=== PATIENT | female | born 1985 | race American Indian/Alaskan Native ===

== ENCOUNTER 2017-06-15 01:04 | Day surgery (SDC) | payer BC ==
[2017-06-15] MEDS ORDERED: NACL 0.9% 1000 ML 1,000 ML IV ONE (01:11)
[2017-06-15] MEDS ORDERED: MORPHINE IV ONE (01:13)
[2017-06-15] MEDS ORDERED: ZOFRAN IV ONE (01:14)
--- NOTE | 2017-06-15 01:27 | Emergency Department Report ---
HPI - General Chief Complaint: Vaginal Bleeding Time Seen by Provider: 06/15/17 01:11 - HPI HPI: 32-year-old -[place] female , with LMP March 30, about 15 weeks EGA , presented to the ED with vaginal bleeding, passed fetus, but placenta still remaining. She states symptoms occurred about an hour ago while at home. She suddenly felt the urge to push, like she was in labor, and started to see vaginal bleeding, and the fetus came out. the fetus has . vaginal bleeding, is light, but her pelvic cramping is 10/10. ED Past Medical Hx - Medications Home Medications: Home Medications Medication Instructions Recorded Confirmed Last Taken Type Vit No.130/Iron/FA 1 each PO DAILY 06/15/17 06/15/17 Unknown History [ Tablet] ED Review of Systems ROS: Stated complaint: POSS MISCARRIAGE Other details as noted in HPI Comment: All other systems reviewed and negative Gastrointestinal: as per HPI Genitourinary: as per HPI Physical Exam - Physical Exam Physical Exam: - General Limitations: No Limitations General appearance: alert, in no apparent distress - Head Head exam: Present: atraumatic, normocephalic - Eye Eye exam: Present: normal appearance - ENT ENT exam: Present: mucous membranes moist - Neck Neck exam: Present: normal inspection - Respiratory Respiratory exam: Present: normal lung sounds bilaterally. Absent: respiratory distress - Cardiovascular Cardiovascular Exam: Present: normal rhythm, tachycardia. Absent: systolic murmur, diastolic murmur, rubs, gallop - GI/Abdominal GI/Abdominal exam: Present: soft, normal bowel sounds - vaginal bleeding with remainder of products of conception - Extremities Exam Extremities exam: Present: normal inspection - Back Exam Back exam: Present: normal inspection - Neurological Exam Neurological exam: Present: alert, oriented X3, - Skin Skin exam: Present: warm, dry, intact, normal color. Absent: rash ED Medical Decision Making - Lab Data Result diagrams: 06/15/17 01:16 06/15/17 01:16 Critical care attestation.: If time is entered above; I have spent that time in minutes in the direct care of this critically ill patient, excluding procedure time. ED Disposition Clinical Impression: Spontaneous Disposition: OP ADMIT IP TO THIS HOSP Is pt being admited?: Yes Does the pt Need Aspirin: No Condition: Stable
[2017-06-15 01:44] LABS: Basophils % (Auto) 0.1 % (0.0-1.8); Eosinophils % (Auto) 1.3 % (0.0-4.3); Hematocrit 33.2 % (30.3-42.9); Hemoglobin 11.6 gm/dl (10.1-14.3); Mean Corpuscular HGB Conc 35 % (30-34); Mean Corpuscular Hemoglobin 29 pg (28-32); Mean Corpuscular Volume 83 fl (79-97); Platelet Count 233 K/mm3 (140-440); Red Cell Distribution Width 13.7 % (13.2-15.2); White Blood Count 9.8 K/mm3 (4.5-11.0)
[2017-06-15] MEDS ORDERED: LACTATED RINGERS 1,000 ML ONE (01:44)
[2017-06-15] MEDS ORDERED: ROCEPHIN/NS 2 GM/100 ML 2 GM/100 ML BAG IV ONE (01:45)
--- NOTE | 2017-06-15 01:54 | Short Stay Summary ---
Short Stay Documentation Date of service: 06/15/17 Narrative H&P: Pt is a 32-year-old -[place] female , with LMP March 30, about 15 weeks EGA, presented to the ED with vaginal bleeding, passed fetus, but placenta still remaining. She states symptoms occurred about an hour ago while at home. She suddenly felt the urge to push, like she was in labor, and started to see vaginal bleeding, and the fetus came out. The fetus has , and vaginal bleeding is light, but her pelvic cramping is 10/10. - History Principal diagnosis: Retained products of conception H&P: obtained from office Past Medical History: No medical history Past Surgical History: No surgical history Social history: no significant social history, - Allergies and Medications Current Medications: Allergies No Known Allergies Allergy (Verified 06/15/17 01:49) Home Medications Medication Instructions Recorded Confirmed Last Taken Type Vit No.130/Iron/FA 1 each PO DAILY 06/15/17 06/15/17 Unknown History [ Tablet] Active Medications Sodium Chloride (Nacl 0.9% 1000 Ml) 1,000 mls @ 999 mls/hr IV BOLUS ONE Stop: 06/15/17 02:11 Ceftriaxone Sodium (Rocephin/Ns 2 Gm/100 Ml) 2 gm in 100 mls @ 200 mls/hr IV ONCE.ED ONE Stop: 06/15/17 02:14 Cefazolin Sodium (Ancef/Sterile Water 2 Gm/20 Ml) 2 gm in 20 mls @ 80 mls/hr IV PREOP NR PRN Reason: Protocol Lactated Ringer's (Lactated Ringers) 1,000 mls @ 125 mls/hr IV DIRECT SANIYA - Physical exam General appearance: mild distress Integumentary: no rash HEENT: Atraumatic Lungs: Clear to auscultation Breasts: deferred Heart: Regular rate Gastrointestinal: normal Female Genitourinary: deferred Rectal Exam: deferred Extremities: No edema Neurological: Normal speech - Brief post op/procedure progress note Date of procedure: 06/15/17 Pre-op diagnosis: Incomplete Post-op diagnosis: same Procedure: D&C Anesthesia: MAC Findings: A 12-14 weeks size uterus with scant amounts of POC Surgeon: NORMA MATA Estimated blood loss: 50-100ml Pathology: list (POC) Specimen disposition: to lab Condition: stable - Hospital course Hospital course: Unremarkable. - Disposition Condition at discharge: Good Disposition: DC-01 TO HOME OR SELFCARE - Discharge Diagnoses (1) Incomplete Status: Resolved (2) Retained products of conception, following delivery with hemorrhage Status: Resolved Short Stay Discharge Plan Activity: no restrictions Diet: regular Follow up with: PRIMARY MD KECIA [Primary Care Provider] - 3-5 Days NORMA MATA MD [Staff Physician] - 7 Days Prescriptions: Doxycycline [Vibramycin CAP] 100 mg PO Q12HR #14 capsule Ibuprofen [Motrin] 600 mg PO Q8H PRN #30 tablet PRN Reason: Pain Methylergonovine [Methergine] 0.2 mg PO Q8HR #6 tablet
[2017-06-15] MEDS ORDERED: ANCEF/STERILE WATER 2 GM/20 ML 2 GM/20 ML SYRINGE IV NR (02:00)
[2017-06-15] MEDS ORDERED: LACTATED RINGERS 1,000 ML IV SCH (02:00)
[2017-06-15 02:04] LABS: Alanine Aminotransferase 7 units/L (7-56); Albumin 3.1 g/dL (3.9-5); Alkaline Phosphatase 66 units/L (35-129); Anion Gap 17 mmol/L; BUN/Creatinine Ratio 6.66; Blood Urea Nitrogen 4 mg/dL (7-17); Calcium 8.4 mg/dL (8.4-10.2); Carbon Dioxide 20 mmol/L (22-30); Chloride 105.9 mmol/L (98-107); Glucose 104 mg/dL (65-100); Potassium 3.7 mmol/L (3.6-5.0); Sodium 139 mmol/L (137-145); Total Protein 6.1 g/dL (6.3-8.2)
[2017-06-15] MEDS ORDERED: SUBLIMAZE ONE (02:27)
[2017-06-15] MEDS ORDERED: DIPRIVAN 10 MG/ML IV ONE (02:27)
[2017-06-15] MEDS ORDERED: XYLOCAINE MPF 2% ONE (02:27)
[2017-06-15] MEDS ORDERED: DILAUDID IV PRN (03:03)
[2017-06-15] MEDS ORDERED: DEMEROL IV PRN (03:03)
--- NOTE | 2017-06-15 03:03 | Anesthesia Consultation ---
Anesthesia Consult and Med Hx Date of service: 06/15/17 - Airway Anesthetic Teeth Evaluation: Good ROM Head & Neck: Adequate Mental/Hyoid Distance: Adequate Mallampati Class: Class II Intubation Access Assessment: Probably Good - Pulmonary Exam CTA: Yes - Cardiac Exam Cardiac Exam: RRR - Pre-Operative Health Status ASA Pre-Surgery Classification: ASA1 Proposed Anesthetic Plan: General - Pulmonary Hx Smoking: No Hx Asthma: No - Cardiovascular System Hx Hypertension: No - Endocrine Hx Non-Insulin Dependent Diabetes: No
--- NOTE | 2017-06-15 03:03 | Anesthesia Day of Surgery ---
Anesthesia Day of Surgery - Day of Surgery Patient Examined: Yes Patient H&P Reviewed: Yes Patient is NPO: Yes
[2017-06-15] MEDS ORDERED: NACL 0.9% 1000 ML 1,000 ML ONE (03:05)
[2017-06-15 03:30] LABS: INR 0.95 (0.87-1.13)
[2017-06-15 03:31] LABS: Partial Thromboplastin Time 28.4 Sec. (24.2-36.6)
[2017-06-15] MEDS ORDERED: ZOFRAN ONE (03:36)
[2017-06-15] MEDS ORDERED: DECADRON ONE (03:38)
--- NOTE | 2017-06-15 03:47 | Operative Report ---
Operative Report Operative Report: PREOPERATIVE DIAGNOSIS: 1. Incomplete 2. Retained products of conception POSTOPERATIVE DIAGNOSIS: Same OPERATIVE PROCEDURE: Dilatation and curettage. SURGEON: Parish Ashby MD ANESTHESIA: Gen. mac ANESTHESIOLOGIST: Dr. Cervantes ESTIMATED BLOOD LOSS: 50 mL's FINDINGS: A 12-14 week size uterus with scant amounts of products of conception COMPLICATIONS: None COUNTS: Correct x3. PROCEDURE: After the patient was correctly identified, and after general anesthesia was administered, the patient was prepped and draped in the usual sterile fashion and placed in dorsal lithotomy position. First, the bladder was emptied using a straight catheter. Next, a speculum was placed in the vaginal vault and the anterior lip of the cervix was grasped using a single- tooth tenaculum. The uterus was sounded to 14 cm. The cervical os was sequentially dilated, and a 12 mm vaccurette was used to suction blood and products of conception from the uterine cavity. After all the products of conception were removed, the procedure was considered complete. All instruments were removed from the vagina. The patient tolerated the procedure well and was transferred to the recovery room in stable condition.
--- NOTE | 2017-06-15 03:52 | Post Anesthesia Evaluation ---
- Post Anesthesia Evaluation Patient Participated: Yes Airway Patent: Yes Stable Respiratory Function: Yes Nausea/Vomiting: No Temp > 96.8F: Yes Pain Manageable: Yes Adequeate Hydration: Yes Anesthesia Complications: No Block Receding Appropriately: Not Applicable Patient on Ventilator: No
[2017-06-15 04:38] VITALS: BP 101/60
== END 2017-06-15 05:20 | disposition home or self-care (01) ==
LOC: ED 01:04 → OR 04:12
PROVIDERS: ATTEND Obstetrics & Gynecology
DX: O03.4 Incomplete spontaneous abortion without complication (principal)
CPT/HCPCS: 36415; 59812; 80053; 85025; 85610; 85730; 86850; 86900; 86901; 88305; 99285; J1100; J2405; J2704; J3010; J7030; J7120; J0696

== ENCOUNTER 2020-10-05 15:16 | Outpatient (CLI) | payer BC, MEDICAID ==
[2020-10-05 15:46] VITALS: BP 108/63
[2020-10-05 15:54] LABS: Bacteria,Urine 1+ /HPF (Negative); Bilirubin,Urine NEG (Negative); Blood,Urine NEG (Negative); Color,Urine Straw (Yellow); Hyaline Casts,Urine 2 /LPF; Mucus,Urine FEW /HPF; Protein,Urine <15 mg/dL mg/dL (Negative); Urobilinogen,Urine < 2.0 mg/dL (<2.0)
[2020-10-05] MEDS ORDERED: LACTATED RINGERS 1,000 ML ONE ×2 (16:41→18:14)
[2020-10-05] MEDS: TERBUTALINE 1 MG/1 ML INJ SUB-Q SCH ×2 (17:50→18:13)
[2020-10-05] MEDS ORDERED: LACTATED RINGERS 1,000 ML IV ONE (18:25)
== END 2020-10-05 19:18 | disposition home or self-care (01) ==
LOC: TRG 15:16 → APU 15:16 → TRG 19:18
PROVIDERS: ATTEND Obstetrics & Gynecology
DX: O26.893 Other specified pregnancy related conditions, third trimester (principal); R25.2 Cramp and spasm; O09.523 Supervision of elderly multigravida, third trimester; O47.03 False labor before 37 completed weeks of gestation, third trimester; Z3A.28 28 weeks gestation of pregnancy
CPT/HCPCS: 59025; 81001; 96372; J3105; J7120; 96360

== ENCOUNTER 2020-11-02 10:29 | Outpatient (CLI) | payer MEDICAID ==
[2020-11-02 11:02] VITALS: BP 101/62
[2020-11-02] MEDS ORDERED: BETAMET ACET/BETAMET NA PH 6 MG/ML INJ 5 ML MDV IM SCH (11:30)
[2020-11-02] MEDS: TERBUTALINE 1 MG/1 ML INJ SUB-Q SCH ×2 (11:44→12:19)
[2020-11-02] MEDS ORDERED: LACTATED RINGERS 1,000 ML IV SCH (12:00)
[2020-11-02] MEDS ORDERED: LACTATED RINGERS 500 ML IV ONE (12:00)
== END 2020-11-02 12:50 | disposition home or self-care (01) ==
LOC: TRG 10:29 → APU 10:39 → TRG 12:50
PROVIDERS: ATTEND Obstetrics & Gynecology
DX: O62.9 Abnormality of forces of labor, unspecified (principal); O09.523 Supervision of elderly multigravida, third trimester; Z3A.32 32 weeks gestation of pregnancy
CPT/HCPCS: 59025; 96360; 96361; 96372; J0702; J3105; J7120

== ENCOUNTER 2020-11-03 11:43 | Outpatient (CLI) | payer MEDICAID ==
[2020-11-03] MEDS ORDERED: BETAMET ACET/BETAMET NA PH 6 MG/ML INJ 5 ML MDV IM NR (12:06)
[2020-11-03 12:45] VITALS: BP 108/70
== END 2020-11-03 12:55 | disposition home or self-care (01) ==
LOC: TRG 11:43 → APU 11:59 → TRG 12:55
PROVIDERS: ATTEND Obstetrics & Gynecology
DX: O47.03 False labor before 37 completed weeks of gestation, third trimester (principal); Z3A.32 32 weeks gestation of pregnancy
CPT/HCPCS: 96372; J0702

== ENCOUNTER 2020-11-23 19:03 | Outpatient (CLI) | payer MEDICAID ==
[2020-11-23 21:37] VITALS: BP 115/72
[2020-11-23] MEDS ORDERED: LACTATED RINGERS 1,000 ML ONE (21:42)
[2020-11-23] MEDS ORDERED: LACTATED RINGERS 500 ML IV ONE (22:04)
[2020-11-23] MEDS ORDERED: LACTATED RINGERS 1,000 ML IV ONE (22:06)
[2020-11-23] MEDS ORDERED: TERBUTALINE 1 MG/1 ML INJ ONE (22:31)
[2020-11-23] MEDS ORDERED: TERBUTALINE 1 MG/1 ML INJ SUB-Q ONE ×2 (22:37→23:27)
[2020-11-23 23:01] LABS: Bacteria,Urine 3+ /HPF (Negative); Bilirubin,Urine NEG (Negative); Blood,Urine NEG (Negative); Color,Urine Yellow (Yellow); Mucus,Urine FEW /HPF; Protein,Urine <15 mg/dL mg/dL (Negative); Urobilinogen,Urine < 2.0 mg/dL (<2.0)
[2020-11-24] MEDS ORDERED: LACTATED RINGERS 500 ML IV ONE (02:15)
== END 2020-11-23 19:04 | disposition home or self-care (01) ==
LOC: TRG 19:03
PROVIDERS: ATTEND Obstetrics & Gynecology
DX: O26.893 Other specified pregnancy related conditions, third trimester (principal); R10.9 Unspecified abdominal pain; O47.03 False labor before 37 completed weeks of gestation, third trimester; Z3A.35 35 weeks gestation of pregnancy
CPT/HCPCS: 81001; 96372; J3105

== ENCOUNTER 2020-12-06 09:14 | Inpatient (IN) | payer MEDICAID ==
[2020-12-06] MEDS ORDERED: LACTATED RINGERS 1,000 ML ONE (10:11)
--- NOTE | 2020-12-06 11:27 | History and Physical Report ---
History of Present Illness Date of examination: 12/06/20 Date of admission: 12/06/20 Chief complaint: Pt with c/o uc with srom cl fluid at 0910. History of present illness: 35 y/o AA female presents to [facility] ob triage @ 37 wks with c/o uc with srom cl fluid at 0910 today. She denies VB and admits to adq FM. Pt states she initiated her pnc at [facility] @ approx 9 wks gestation. 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 Hx oral surgery at age 12. Social hx is unremarkable. Family hx of cancer. Pt was transferred to L&D for delivery. PNR were requested. 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) Past Surgical History: other (oral surgery at age 12) Family/Genetic History: cancer Social history: no significant social history - Obstetrical History Expected Date of Delivery: 12/27/20 Actual Gestation: 37 Week(s) 0 Day(s) : 5 Para: 4 Hx # Term Pregnancies: 3 Number of Pregnancies: 1 Number of Living Children: 3 Medications and Allergies Allergies Allergy/AdvReac Type Severity Reaction Status Date / Time No Known Allergies Allergy Verified 06/15/17 01:49 Home Medications Medication Instructions Recorded Confirmed Last Taken Type DOXYCYCLINE Hyclate [Vibramycin 100 mg PO Q12HR #14 capsule 06/15/17 11/23/20 Unknown Rx CAP] Ibuprofen [Motrin] 600 mg PO Q8H PRN #30 tablet 06/15/17 11/23/20 Unknown Rx Methylergonovine [Methergine] 0.2 mg PO Q8HR #6 tablet 06/15/17 11/23/20 Unknown Rx Vit No.130/Iron/Folic 1 each PO DAILY 06/15/17 11/23/20 11/23/20 10:00 History [ Tablet] Review of Systems All systems: negative Eyes: deferred Ears, nose, mouth and throat: deferred Breasts: normal Genitourinary: normal appearance Rectal Exam: deferred - Vital Signs Vital signs: Vital Signs Pulse BP 77 108/69 12/06/20 09:26 12/06/20 09:26 Temp Pulse Resp BP Pulse Ox 98.9 F 87 16 108/69 99 12/06/20 10:46 12/06/20 10:46 12/06/20 10:46 12/06/20 10:46 12/06/20 09:52 - Physical Exam Breasts: Positive: normal Abdomen: Positive: normal appearance, soft, normal bowel sounds Genitourinary (Female): Positive: normal external genitalia, normal perenium Vulva: both: normal Vagina: Positive: normal moisture Uterus: Positive: enlarged, normal contour, other (gravid) Adnexa: both: normal Anus/Rectum: Positive: normal perianal skin Extremities: Positive: normal - Obstetrical FHR: auscultation normal, category 1 Uterine Contraction Monitor Mode: External Cervical Dilatation: 4 (per nurse) Cervical Effacement Percentage: 50 (per nurse) station: -2 Uterine Contraction Frequency (min): q2 Uterine Contraction Pattern: Regular Uterine Tone Measurement Phase: Resting Uterine Contraction Intensity: Moderate Results All other labs normal. Assessment and Plan A: IUP@ 37 wks with srom cl fluid @ 0910 HX ptd@ 20 wks with demise GBS unknown P: Admit to L&D GBS prophylaxis Pain med/Epidural prn Anticipate - Patient Problems (1) SROM (spontaneous rupture of membranes) Current Visit: Yes Status: Acute
[2020-12-06] MEDS ORDERED: LIDOCAINE (2%) 20 MG/1 ML VIAL 20 ML MDV INFILTRATI SCH (11:30)
[2020-12-06] MEDS ORDERED: fentaNYL 100 MCG/2 ML INJ IV PRN (11:30)
[2020-12-06] MEDS ORDERED: MINERAL OIL 30 ML ORAL LIQD PO PRN (11:30)
[2020-12-06] MEDS ORDERED: BUTORPHANOL 2 MG/1 ML INJ IV PRN ×2 (11:30)
[2020-12-06] MEDS ORDERED: ePHEDrine SULFATE 50 MG/1 ML INJ IV PRN (11:30)
[2020-12-06 11:45] LABS: Hematocrit 33.5 % (30.3-42.9); Hemoglobin 11.4 gm/dl (10.1-14.3); Mean Corpuscular HGB Conc 34 % (30-34); Mean Corpuscular Volume 82 fl (79-97); Platelet Count 242 K/mm3 (140-440); Red Blood Count 4.08 M/mm3 (3.65-5.03); Red Cell Distribution Width 15.2 % (13.2-15.2)
[2020-12-06] MEDS ORDERED: AMPICILLIN/NS 2 GM/100 ML 2 GM/100 ML BAG IV SCH (12:00)
[2020-12-06] MEDS ORDERED: LACTATED RINGERS 1,000 ML IV SCH (12:00)
[2020-12-06] MEDS ORDERED: OXYTOCIN DRIP 30 UNITS/500 ML BAG IV SCH ×3 (12:00→20:53)
[2020-12-06] MEDS ORDERED: TERBUTALINE 1 MG/1 ML INJ SUB-Q PRN (12:00)
[2020-12-06] MEDS ORDERED: NALOXONE 2 MG/2 ML INJ IV PRN (15:05)
--- NOTE | 2020-12-06 15:07 | Anesthesia Consultation ---
Anesthesia Consult and Med Hx Date of service: 12/06/20 - Pulmonary Exam CTA: Yes - Cardiac Exam Cardiac Exam: RRR - Pre-Operative Health Status ASA Pre-Surgery Classification: ASA2 Proposed Anesthetic Plan: Epidural - Pulmonary Hx Smoking: No Hx Asthma: No - Cardiovascular System Hx Hypertension: No - Central Nervous System Hx Seizures: No Hx Psychiatric Problems: No - Endocrine Hx Renal Disease: No Hx Non-Insulin Dependent Diabetes: No Hx Hypothyroidism: No Hx Hyperthyroidism: No - Hematic Hx Anemia: No Hx Sickle Cell Disease: Yes (trait) - Other Systems Hx Alcohol Use: No
--- NOTE | 2020-12-06 15:08 | Progress Note ---
Labor Epidural - Labor Epidural Start Time: 14:37 Stop Time: 14:40 Performed by:: TERI REBOLLEDO Procedure: Patient is requesting epidural for labor pain. H&P, and labs reviewed. Procedure explained, questions answered, consent obtained. Patient in sitting position with blood pressure cuff and pulse ox on and working. Timeout performed immediately before start of procedure. Sterile chlorahexadine 0.5% prep/drape. 3 mL 1% lidocaine skin wheal at L[3]-L[4]. 18-gauge Tuohy epidural needle advanced to [id number] with saline at [7] cm. Epidural dexmedetomidine [30] mcg administered. Epidural catheter advanced to [12] cm, negative aspiration for blood and csf, negative test dose 3 ml 1.5% lidocaine with epinephrine. Sterile steri-strips and tegaderm applied, followed by tape reinforcement. Patient tolerated procedure well.
[2020-12-06] MEDS: ePHEDrine SULFATE 50 MG/1 ML INJ IV PRN ×2 (15:46→16:01)
[2020-12-06] MEDS ORDERED: fentaNYL-BUPIV 2 MCG/ML-0.125% 200 MCG/100 ML BAG EPIDURAL SCH (16:00)
[2020-12-06] MEDS ORDERED: AMPICILLIN/NS 1 GM/50 ML 1 GM/50 ML BAG IV SCH (16:00)
[2020-12-06] MEDS ORDERED: BUPIVACAINE/PF (0.25%) 2.5 MG/ML 10 ML VIAL INFILTRATI ONE (16:56)
[2020-12-06] MEDS ORDERED: miSOPROStol 200 MCG TAB PR SCH (17:00)
[2020-12-06] MEDS ORDERED: miSOPROStol 200 MCG TAB ONE (17:14)
--- NOTE | 2020-12-06 17:29 | Event Note ---
Date: 12/06/20 pt evaluated earlier and pelvic essentially unchanged. FHR category I however has periods of loss of contact. AROM done at 16:15; IUPC and FSE placed. Nurse told to start pitocin and augment labor if contractions inadequate. Expect
--- NOTE | 2020-12-06 17:43 | Procedure Note ---
OB Delivery Note - Delivery Date of Delivery: 12/06/20 Surgeon: JASPER REYES Estimated blood loss: other (150cc) - Vaginal Delivery presentation: vertex Delivery position: OP Intrapartum events: prolonged active phase (Pt therefor given pitocin augmentation), other(please specify) (PROM prior to admit) Delivery induction: none Delivery augmentation: rupture of membranes (forebag AROM by NOÉ Amato), pitocin Delivery monitor: external FHT, external uterine, internal FHT, internal uterine (Internal monitors placed with prolong active phase) Route of delivery: Delivery placenta: spontaneous Episiotomy: none Delivery laceration: none Anesthesia: epidural Delivery comments: SAVD of viable male infant in persistent OP presentation uncomplicated with spontaneous delivery of complete placenta with 3vessel cord. Given cytotec 800mcg per rectum with grand multiparity. External hemorrhoids noted and non- thrombosed - Infant A at 1 minute: 8 at 5 minutes: 9 (male ; wt 3225g)
[2020-12-06] MEDS ORDERED: FLUCONAZOLE 100 MG TAB PO ONE (18:00)
[2020-12-06] MEDS ORDERED: PROMETHAZINE 25 MG TAB PO PRN (20:53)
[2020-12-06] MEDS ORDERED: ONDANSETRON 4 MG/2 ML INJ IV PRN (20:53)
[2020-12-06] MEDS ORDERED: LANOLIN/ZINC/DIMETHICONE (LANSINOH) 7 GM TP PRN (20:53)
[2020-12-06] MEDS ORDERED: WITCH HAZEL/ GLYCERIN PAD TP PRN (20:53)
[2020-12-06] MEDS ORDERED: PROMETHAZINE 25 MG RECT SUPP PR PRN (20:53)
[2020-12-06] MEDS ORDERED: MAGNESIUM HYDROXIDE (MOM) ORAL LIQD UDC PO PRN (20:53)
[2020-12-06] MEDS ORDERED: diphenhydrAMINE 25 MG CAP PO PRN (20:53)
[2020-12-07] MEDS: IBUPROFEN 600 MG TAB PO SCH ×4 (00:14→23:48)
[2020-12-07] MEDS: DOCUSATE SODIUM 100 MG CAP PO SCH ×2 (07:46→10:26)
[2020-12-07 08:30] LABS: Hematocrit 30.3 % (30.3-42.9); Hemoglobin 10.2 gm/dl (10.1-14.3)
--- NOTE | 2020-12-07 11:37 | Discharge Summary ---
Providers - Providers Date of Admission: 12/06/20 14:27 Date of discharge: 12/08/20 Attending physician: ANALI EVANS MD Primary care physician: LUNA MONTESINOS JR, MD Hospitalization Reason for admission: active labor Delivery: Episiotomy: none Laceration: none Other procedures: none complications: none Discharge diagnosis: IUP at term delivered, other (anemia) [place] baby: male Condition at discharge: Good Disposition: DC-01 TO HOME OR SELFCARE - Discharge Diagnoses (1) Status post normal vaginal delivery Status: Acute (2) Anemia Status: Acute Qualifiers: Anemia type: other cause Other causes of anemia: acute posthemorrhagic Qualified Code(s): D62 - Acute posthemorrhagic anemia Comment: Asymptomatic Plan - Provider Discharge Summary Activity: routine, no sex for 6 weeks, no heavy lifting 4 weeks, no strenuous exercise Diet: other (Iron rich diet) Instructions: routine Additional instructions: [] Smoking cessation referral if applicable(refer to patient education folder for contact #) [] Refer to [facility] Booklet Call your doctor immediately for: * Fever > 100.5 * Heavy vaginal bleeding ( >1 pad per hour) * Severe persistent headache * Shortness of breath * Reddened, hot, painful area to leg or breast - Follow up plan Follow up: LUNA MONTESINOS JR, MD [Primary Care Provider] - 6 Weeks
--- NOTE | 2020-12-07 17:16 | Post Anesthesia Evaluation ---
- Post Anesthesia Evaluation Patient Participated: Yes Airway Patent: Yes Stable Respiratory Function: Yes Nausea/Vomiting: No Temp > 96.8F: Yes Pain Manageable: Yes Adequeate Hydration: Yes Anesthesia Complications: No Block Receding Appropriately: Yes
[2020-12-08] MEDS: DOCUSATE SODIUM 100 MG CAP PO SCH (00:01)
[2020-12-08] MEDS: IBUPROFEN 600 MG TAB PO SCH (05:37)
[2020-12-08 17:16] VITALS: BP 103/63
== END 2020-12-08 16:40 | disposition home or self-care (01) | DRG 775 ==
LOC: TRG 09:14 → APU 09:15 → TRG 13:26 → APU 13:26 → TRG 14:26 → LD 14:27 → OB 20:30
PROVIDERS: ADMIT Obstetrics & Gynecology; ATTEND Obstetrics & Gynecology
PROC: 10E0XZZ Delivery of Products of Conception, External Approach (ICD-10-PCS; principal; 2020-12-06)
PROC: 3E0R3BZ Introduction of Anesthetic Agent into Spinal Canal, Percutaneous Approach (ICD-10-PCS; 2020-12-06)
PROC: 00HU33Z Insertion of Infusion Device into Spinal Canal, Percutaneous Approach (ICD-10-PCS; 2020-12-06)
PROC: 10H07YZ Insertion of Other Device into Products of Conception, Via Natural or Artificial Opening (ICD-10-PCS; 2020-12-06)
PROC: 10907ZC Drainage of Amniotic Fluid, Therapeutic from Products of Conception, Via Natural or Artificial Opening (ICD-10-PCS; 2020-12-06)
DX: O99.02 Anemia complicating childbirth (principal); D62 Acute posthemorrhagic anemia; D57.3 Sickle-cell trait; Z20.822 Contact with and (suspected) exposure to COVID-19; Z80.9 Family history of malignant neoplasm, unspecified; Z3A.37 37 weeks gestation of pregnancy; Z37.0 Single live birth; Z79.899 Other long term (current) drug therapy
CPT/HCPCS: 36415; 85014; 85018; 85027; 86850; 86900; 86901; G0378; J2590; J7120; U0003